=== PATIENT | female | born 1950 | race Caucasian/White ===

== ENCOUNTER 2017-05-18 11:57 | Emergency (ER) | payer OTHER ==
[2017-05-18 12:01] VITALS: TEMP 98.4
--- NOTE | 2017-05-18 12:12 | CPEKG ---
Heart Rate: 84 RR Interval: 714 P-R Interval: 160 QRSD Interval: 82 QT Interval: 400 QTC Interval: 473 P [place]: 71 QRS [place]: 57 T Wave [place]: 48 EKG Severity - NORMAL ECG - EKG Impression: SINUS RHYTHM Electronically Signed By: Juan Luis Rico 18-May-2017 13:51:09
--- NOTE | 2017-05-18 12:17 | EDPHY ---
H & P Stated Complaint: left arm pain, left face feels numb, heart racing starting this morning Time Seen by Provider: 05/18/17 12:16 - Personal History Current Tetanus/Diphtheria Vaccine: No Current Tetanus Diphtheria and Acellular Pertussis (TDAP): No - Medical/Surgical History Hx Asthma: No Hx Chronic Respiratory Disease: No Hx Diabetes: No Hx Cardiac Disease: No Hx Renal Disease: No Hx Cirrhosis: No Hx Alcoholism: No Hx HIV/AIDS: No Hx Splenectomy or Spleen Trauma: No Other PMH: none reported - Social History Smoking Status: Never smoked Constitutional: Initial Vital Signs Temperature (C) 36.9 C 05/18/17 11:59 Heart Rate 91 05/18/17 11:59 Respiratory Rate 18 05/18/17 11:59 Blood Pressure 163/87 H 05/18/17 11:59 O2 Sat (%) 97 05/18/17 11:59 O2 Delivery Mode Room Air Allergies/Adverse Reactions: No Known Allergies Allergy (Unverified 05/18/17 11:59) Home Medications: Medication Instructions Recorded NK [No Known Home Meds] 05/18/17 Medical Decision Making - Diagnostics Imaging Results: Imaging Impressions Chest X-Ray 05/18/17 12:19 Impression: Possible airways disease. Otherwise negative. Imaging: I viewed and interpreted images myself ED Course/Re-evaluation: CHIEF COMPLAINT: Dyspnea, left arm pain, left facial numbness HISTORY OF PRESENT ILLNESS: The patient is a 67 y/o female arriving with her complaining of dyspnea, left arm pain, and left facial numbness that began around 09:00 this morning, about 3.5 hours ago. She describes achiness and numbness in her left arm. After symptoms began she then noticed a racing heart and palpitations that did not improve until arriving in the ED. She currently feels nearly back to baseline. She was able to exercise normally this past week without eliciting symptoms. No cardiac history, blood clot history, recent prolonged travel. REVIEW OF SYSTEMS: A 10 point review of systems was performed and is negative with the exception of the elements mentioned in the history of present illness. PHYSICAL EXAM: HR, BP, O2 Sat, RR. Temp noted General Appearance: Alert, well hydrated, appropriate, and non-toxic appearing. Head: Atraumatic without scalp tenderness or obvious injury Eyes: Pupils equal, round, reactive to light and accommodation, EOMI, no trauma , no injection. Nose: Atraumatic, no rhinorrhea, clear. Throat: Mucus membranes moist. Neck: Supple, nontender, no lymphadenopathy. Respiratory: No retractions, no distress, no wheezes, and no accessory muscle use. Lungs are clear to auscultation bilaterally. Cardiovascular: Regular rate and rhythm, no murmurs, rubs, or gallops. Good capillary refill all extremities. Gastrointestinal: Abdomen is soft, nontender, non-distended, no masses, no rebound, no guarding, no peritoneal signs. Musculoskeletal: Normal active ROM of all extremities, atraumatic. Neurological: Alert, appropriate, and interactive. The patient has non-focal cranial nerves, motor, sensory, and cerebellar exam. Skin: No rashes, good turgor, no nodules on palpation. Past medical history: Mild hypothyroidism Past surgical history: Denies Family history: Noncontributory Social history: at bedside. PCP: Dr. Camp DIAGNOSTICS/PROCEDURES/CRITICAL CARE TIME: The 12 lead EKG was interpreted by myself. Sinus rhythm rate 84. See hard copy and/or "tracemaster" electronic copy for interpretation. Chest x-ray: no infiltrate DIFFERENTIAL DIAGNOSIS: The differential diagnosis for the patient's shortness of breath and hypoxemia included but was not limited to pneumonia, myocardial infarction, acute mountain sickness, high altitude pulmonary edema, congestive heart failure, and pulmonary embolus. MEDICAL DECISION MAKING: This is a healthy 67 y/o female who presents with a 3-hour episode of dyspnea, left arm pain, left facial numbness, and racing heart rate that have resolved since arrival in the ED. No known cardiac risk factors. Her exam is completely normal. Plan for IV, labs, EKG, chest x-ray. 1330: Reassessed patient and discussed work up. TSH elevated at 8.500. Otherwise labs are normal. Normal EKG and chest x-ray. She is currently asymptomatic and her exam remains normal. She feels comfortable for discharge home and follow up with PCP and cardiology this week. Return precautions discussed. - Data Points Laboratory Results: Laboratory Results 05/18/17 12:05 05/18/17 12:05 05/18/17 05/18/17 05/18/17 12:05 12:05 12:05 WBC 7.69 10^3/uL 10^3/uL (3.80-9.50) RBC 4.57 10^6/uL 10^6/uL (4.18-5.33) Hgb 14.6 g/dL g/dL (12.6-16.3) Hct 42.1 % % (38.0-47.0) MCV 92.1 fL fL (81.5-99.8) MCH 31.9 pg pg (27.9-34.1) MCHC 34.7 g/dL g/dL (32.4-36.7) RDW 12.9 % % (11.5-15.2) Plt Count 226 10^3/uL 10^3/uL (150-400) MPV 11.4 fL fL (8.7-11.7) Neut % (Auto) 48.5 % % (39.3-74.2) Lymph % (Auto) 42.0 % % (15.0-45.0) M[place] % (Auto) 7.8 % % (4.5-13.0) Eos % (Auto) 0.8 % % (0.6-7.6) Baso % (Auto) 0.8 % % (0.3-1.7) Nucleat RBC Rel Count 0.0 % % (0.0-0.2) Absolute Neuts (auto) 3.73 10^3/uL 10^3/uL (1.70-6.50) Absolute Lymphs (auto) 3.23 10^3/uL H 10^3/uL (1.00-3.00) Absolute Monos (auto) 0.60 10^3/uL 10^3/uL (0.30-0.80) Absolute Eos (auto) 0.06 10^3/uL 10^3/uL (0.03-0.40) Absolute Basos (auto) 0.06 10^3/uL 10^3/uL (0.02-0.10) Absolute Nucleated RBC 0.00 10^3/uL 10^3/uL (0-0.01) Immature Gran % 0.1 % % (0.0-1.1) Immature Gran # 0.01 10^3/uL 10^3/uL (0.00-0.10) D-Dimer < 0.27 ug/mLFEU ug/mLFEU (0.00-0.50) Sodium 140 mEq/L mEq/L (135-145) Potassium 4.0 mEq/L mEq/L (3.5-5.2) Chloride 102 mEq/L mEq/L (97-110) Carbon Dioxide 24 mEq/l mEq/l (22-31) Anion Gap 14 mEq/L mEq/L (8-16) BUN 16 mg/dL mg/dL (7-23) Creatinine 0.7 mg/dL mg/dL (0.6-1.0) Estimated GFR > 60 Glucose 96 mg/dL mg/dL (70-100) Calcium 9.4 mg/dL mg/dL (8.5-10.4) Troponin I Pending NT-Pro-B Natriuret Pep 47 pg/mL pg/mL (0-125) TSH 8.500 uIU/mL H uIU/mL (0.465-4.680) Departure - Departure Disposition: Home, Routine, Self-Care Clinical Impression: Palpitations Condition: Good Instructions: Heart Palpitations (ED) Additional Instructions: Follow up with cardiology this week for palpitations. Follow up with your PCP this week for your thyroid. I recommend 25-50mcg Synthroid daily in the mornings. Return to the ED for any worsening of condition. Referrals: Margarita Camp PA [Primary Care Provider] - As per Instructions Jomar Magallon MD [Medical Doctor] - As per Instructions Report Scribed for: Juan Luis Rico Report Scribed by: Yolis Loo Date of Report: 05/18/17 Time of Report: 12:25
[2017-05-18 12:29] LABS: PLATELET COUNT 226 10^3/uL (150-400)
[2017-05-18 13:11] VITALS: RESP 16; O2SAT 93
[2017-05-18 13:53] VITALS: BP 151/86; PULSE 67
== END 2017-05-18 13:50 | disposition home or self-care (01) ==
DX: R00.2 Palpitations (principal)